=== PATIENT | female | born 1995 | race Caucasian/White ===

== ENCOUNTER 2023-01-29 08:00 | Outpatient (CLI) | payer OTHER ==
[2023-01-29 21:24] LABS: BILIRUBIN,URINE NEGATIVE (NEGATIVE); GLUCOSE, URINE (UA) NEGATIVE (NEGATIVE); KETONES,URINE (UA) TRACE mg/dL (NEGATIVE); LEUKOCYTE ESTERASE, URINE NEGATIVE (NEGATIVE); NITRITE,URINE NEGATIVE (NEGATIVE); OCCULT BLOOD,URINE NEGATIVE (NEGATIVE); PROTEIN,URINE NEGATIVE (NEGATIVE); UROBILINOGEN,URINE 1 (NORMAL) E.U./dL (NORMAL)
[2023-01-29 21:26] LABS: CLARITY,URINE CLOUDY (CLEAR)
[2023-01-29 21:55] LABS: BACTERIA,URINE Few /HPF (None Seen); RBC,URINE 0-5 /HPF (0-5); SQUAMOUS EPITHELIAL CELL,UR FEW Squamous (<= Few); WBC,URINE 0-3 /HPF (0-5)
[2023-01-29 21:56] LABS: AMORPHOUS SEDIMENT,UR Marked /LPF
== END 2023-01-29 23:59 | disposition home or self-care (01) ==
LOC: LAB.N 08:00
PROVIDERS: ATTEND Specialist
DX: M54.9 Dorsalgia, unspecified (principal)
CPT/HCPCS: 81001; 87086